=== PATIENT | male | born 2000 | race Caucasian/White ===

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

== ENCOUNTER 2019-03-24 19:25 | Emergency (ER) | payer OTHER ==
[~2019-03-24] VITALS: Ht 172.7 cm; Wt 74.8 kg
[2019-03-24 19:35] VITALS: BP 123/70
--- NOTE | 2019-03-24 19:38 | NUR ---
TO LOBBY A/W BED AMBULATORY
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
[2019-03-24] MEDS ORDERED: BACITRACIN OINT 500 UNITS/GM PKT TP ONE (20:25)
--- NOTE | 2019-03-24 20:35 | NUR ---
BACITRACIN PLACED ON PTS FA BURN AT THIS TIME
--- NOTE | 2019-03-24 20:54 | NUR ---
Patient discharged with v/s stable. Written and verbal after care instructions given and explained. Patient alert, oriented and verbalized understanding of instructions. Ambulatory with steady gait. All questions addressed prior to discharge. ID band removed. Patient advised to follow up with PMD. Rx of BACITRACIN AND TYLENOL given. Patient educated on indication of medication including possible reaction and side effects. Opportunity to ask questions provided and answered.
[2019-03-24 20:56] VITALS: BP 123/70
== END 2019-03-24 20:54 | disposition home or self-care (01) ==
LOC: MED 19:25
DX: T22.112A Burn of first degree of left forearm, initial encounter (principal); X10.0XXA Contact with hot drinks, initial encounter; Y93.89 Activity, other specified; Y92.090 Kitchen in other non-institutional residence as the place of occurrence of the external cause; Y99.0 Civilian activity done for income or pay
CPT/HCPCS: 16000; 99284

== ENCOUNTER 2019-07-18 16:52 | Emergency (ER) | payer SELFPAY ==
[~2019-07-18] VITALS: Ht 170.2 cm; Wt 65.8 kg
[2019-07-18 17:01] VITALS: BP 131/79
--- NOTE | 2019-07-18 17:06 | NUR ---
Patient ambulated to bed 2
--- NOTE | 2019-07-18 17:10 | NUR ---
19 Y/O MALE C/O ABD PAIN WITH NAUSEA AND DIARRHEA X 2 DAYS. DENIES VOMITING. X 2 EPISODES OF DIARRHEA TODAY. 2/10 ABD CRAMPING. STATES SYMPTOMS STARTED AFTER EATING AT [employer]. DENIES FEVER/CHILLS. ABD SOFT, FLAT, NONTENDER TO PALP. BOWEL SOUNDS ACTIVE X 4 QUAD. STATES HE TOOK LUCAS SELTZER EARLIER WITH NO RELIEF. SITTING UPRIGHT, HOB ELEVATED. X 1 SIDE RAIL RAISED, BED LOCKED AND IN LOW POSITION. VSS MEDHX: DENIES ALLERGIES: NKA
--- NOTE | 2019-07-18 17:17 | NUR ---
DR GUTIERREZ AT BEDSIDE EXAMINING PT
[2019-07-18 17:31] VITALS: BP 124/81
--- NOTE | 2019-07-18 17:32 | NUR ---
Patient discharged with v/s stable. Written and verbal after care instructions given and explained. Patient alert, oriented and verbalized understanding of instructions. Ambulatory with steady gait. All questions addressed prior to discharge. ID band removed. Patient advised to follow up with PMD. Rx of ZOFRAN AND PROTONIX given. Patient educated on indication of medication including possible reaction and side effects. Opportunity to ask questions provided and answered.
== END 2019-07-18 17:32 | disposition home or self-care (01) ==
LOC: MED 16:52
DX: A08.4 Viral intestinal infection, unspecified (principal)
CPT/HCPCS: 99283

== ENCOUNTER 2020-05-10 13:27 | Emergency (ER) | payer SELFPAY ==
[~2020-05-10] VITALS: Ht 170.2 cm; Wt 68.0 kg
[2020-05-10 13:49] VITALS: BP 158/76
--- NOTE | 2020-05-10 13:49 | NUR ---
PT WAITING OUTSIDE IN COVID TENT FOR MSE.
--- NOTE | 2020-05-10 13:50 | NUR ---
20/M c/o headache and body aches x2 days. Denies being in contact with + covid. Denies N/V/D. Denies fever or chills. Pt states he has been tested for covid in past but not recently.
--- NOTE | 2020-05-10 13:50 | NUR ---
PT SEEN BY HARMONY SOLANO OUTSIDE.
--- NOTE | 2020-05-10 14:36 | NUR ---
NOVEL SWAB COLLECTED AND SENT TO LAB.
[2020-05-10 14:37] VITALS: BP 158/76
--- NOTE | 2020-05-10 14:37 | NUR ---
Patient discharged with v/s stable. Written and verbal after care instructions given and explained. Patient alert, oriented and verbalized understanding of instructions. Ambulatory with steady gait. All questions addressed prior to discharge. ID band removed. Patient advised to follow up with PMD. Rx of Tylenol Extra Strength given. Patient educated on indication of medication including possible reaction and side effects. Opportunity to ask questions provided and answered.
== END 2020-05-10 14:37 | disposition home or self-care (01) ==
LOC: MED 13:27
DX: M79.10 Myalgia, unspecified site (principal); Z20.828 Contact with and (suspected) exposure to other viral communicable diseases; R51.9 Headache, unspecified
CPT/HCPCS: 99283; U0003

== ENCOUNTER 2020-05-31 18:13 | Emergency (ER) | payer MEDICAID, SELFPAY ==
[~2020-05-31] VITALS: Ht 170.2 cm; Wt 72.6 kg
[2020-05-31 18:25] VITALS: BP 119/65
[2020-05-31] MEDS ORDERED: LIDOCAINE VISCOUS 2% 20 ML UDC ONE (19:18)
[2020-05-31] MEDS ORDERED: DICYCLOMINE HCL LIQUID 10 MG/5 ML UDC ONE (19:19)
[2020-05-31] MEDS ORDERED: ALUMINUM HYD/MAG/SIMETHICONE 30 ML UDC ONE (19:19)
[2020-05-31] MEDS: ALUMINUM HYD/MAG/SIMETHICONE 30 ML, DICYCLOMINE HCL LIQUID 20 MG, LIDOCAINE VISCOUS 2% ... PO ONE ×3 (19:23)
[2020-05-31 20:55] VITALS: BP 115/63
== END 2020-05-31 20:55 | disposition home or self-care (01) ==
LOC: MED 18:13
DX: K29.70 Gastritis, unspecified, without bleeding (principal)
CPT/HCPCS: 99283

== ENCOUNTER 2020-06-15 10:52 | Emergency (ER) | payer MEDICAID ==
[~2020-06-15] VITALS: Ht 170.2 cm; Wt 77.1 kg
[2020-06-15 10:58] VITALS: BP 148/78
--- NOTE | 2020-06-15 11:05 | NUR ---
20 YO M BIB SELF FOR C/C OF 8/10 MID LOWER ABDOMINAL PAIN DESCRIBED A "PUSHING" PAIN THAT COMES AND GOES. PT WAS DX WITH GASTRITIS LAST MONTH AND WAS PRESCRIBED RX OF PEPCID, PT STATES RX HELPED INITIALLY BUT PAIN IS RETURNING THE SAME IT DID LAST MONTH. PT DENIES N/V/D, DENIES CHANGES IN APPETITE, DENIES COVID SYMPTOMS. LBM WAS THIS MORNING SOFT AND FORMED. BOWEL SOUNDS NORMOACTIVE THROUGHOUT. BED LOCKED AND IN LOWEST POSITION. SIDE RAILS X1. MED HX: GASTRITIS
--- NOTE | 2020-06-15 12:17 | NUR ---
pt taken to rad via wheelchair
--- NOTE | 2020-06-15 12:29 | NUR ---
PT RETURNED FROM RAD VIA WHEELCHAIR
[2020-06-15 13:38] VITALS: BP 130/81
== END 2020-06-15 13:38 | disposition home or self-care (01) ==
LOC: MED 10:52
DX: R10.30 Lower abdominal pain, unspecified (principal)
CPT/HCPCS: 74022; 99283

== ENCOUNTER 2020-11-21 08:18 | Emergency (ER) | payer MEDICAID ==
[~2020-11-21] VITALS: Ht 170.2 cm; Wt 70.8 kg
[2020-11-21 08:25] VITALS: BP 137/78
--- NOTE | 2020-11-21 08:30 | NUR ---
PT AMBULATED TO BED 9
--- NOTE | 2020-11-21 08:32 | NUR ---
DR ODOM AT BEDSIDE EVALUATING PT
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
--- NOTE | 2020-11-21 08:47 | NUR ---
PT TAKEN TO RAD VIA W/C
--- NOTE | 2020-11-21 09:03 | NUR ---
PT BACK FROM RAD.
[2020-11-21] MEDS ORDERED: NAPR-1704 PO (09:13)
[2020-11-21 09:25] VITALS: BP 137/78
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
== END 2020-11-21 09:31 | disposition home or self-care (01) ==
LOC: MED 08:18
DX: S16.1XXA Strain of muscle, fascia and tendon at neck level, initial encounter (principal); S29.012A Strain of muscle and tendon of back wall of thorax, initial encounter; Z79.899 Other long term (current) drug therapy; V43.52XA Car driver injured in collision with other type car in traffic accident, initial encounter; Y93.89 Activity, other specified; Y92.89 Other specified places as the place of occurrence of the external cause; Y99.8 Other external cause status
CPT/HCPCS: 72040; 99283

== ENCOUNTER 2021-01-02 08:36 | Emergency (ER) | payer MEDICAID, OTHER ==
[~2021-01-02] VITALS: Ht 170.2 cm; Wt 79.4 kg
[~2021-01-02 08:36] MED LIST: NAPR-1704 PO
[2021-01-02 08:41] VITALS: BP 122/74
--- NOTE | 2021-01-02 08:45 | NUR ---
PATIENT AMBULATED TO CHAIR A.
--- NOTE | 2021-01-02 09:03 | NUR ---
20 Y/O MALE C/O TOOTH PAIN X2 WEEK. UPPER L MOLAR. PT STATES PAIN INCREASED LAST NIGHT AND WOKE HIM UP AT 0200. PT HAS NOT SEEN DENTIST IN YEARS. PT TOOK IBUPROFEN, TYENOL AND ORAJEL WITHOUT RELIEF. DENIES N/V/FEVER/CHILLS/SOB. PT A/O X4 WITH EVEN AND UNLABORED RESPIRATIONS PMH:DENIES NKDA
[2021-01-02] MEDS ORDERED: KETOROLAC 60 MG/2 ML VIAL IM ONE (09:05)
--- NOTE | 2021-01-02 09:50 | NUR ---
Dr. Lerma is evaluating patient at bedside.
[2021-01-02] MEDS ORDERED: IBUP-2213 PO (10:00)
[2021-01-02] MEDS ORDERED: ACET-8386 PO (10:00)
--- NOTE | 2021-01-02 10:04 | NUR ---
Patient discharged with v/s stable. Written and verbal after care instructions given and explained for Dental Abscess. Work note provided. Patient alert, oriented and verbalized understanding of instructions. Ambulatory with steady gait. All questions addressed prior to discharge. ID band removed. Patient advised to follow up with PMD. Rx of Hydrocodone/Acetaminophen, Ibuprofen given. Patient educated on indication of medication including possible reaction and side effects. Opportunity to ask questions provided and answered.
== END 2021-01-02 10:04 | disposition home or self-care (01) ==
LOC: MED 08:36
DX: K08.89 Other specified disorders of teeth and supporting structures (principal)
CPT/HCPCS: 96372; 99283; J1885

== ENCOUNTER 2021-01-24 17:56 | Emergency (ER) | payer SELFPAY ==
[~2021-01-24] VITALS: Ht 170.2 cm; Wt 72.8 kg
[~2021-01-24 17:56] MED LIST changes: +ACET-8386 PO; +IBUP-2213 PO
[2021-01-24 18:11] VITALS: BP 139/70
--- NOTE | 2021-01-24 18:16 | NUR ---
PT TO WAIT IN LOBBY
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
--- NOTE | 2021-01-24 20:12 | NUR ---
Patient discharged with v/s stable. Written and verbal after care instructions given and explained. Patient verbalized understanding. Ambulatory with steady gait. All questions addressed prior to discharge. Advised to follow up with PMD.
== END 2021-01-24 20:12 | disposition home or self-care (01) ==
LOC: MED 17:56
DX: S63.92XA Sprain of unspecified part of left wrist and hand, initial encounter (principal); X50.0XXA Overexertion from strenuous movement or load, initial encounter; Y93.89 Activity, other specified; Y92.89 Other specified places as the place of occurrence of the external cause; Y99.8 Other external cause status
CPT/HCPCS: 73090; 73110; 99284

== ENCOUNTER 2021-08-10 09:10 | Emergency (ER) | payer SELFPAY ==
[~2021-08-10] VITALS: Ht 170.2 cm; Wt 68.0 kg
[2021-08-10 09:18] VITALS: BP 120/66
--- NOTE | 2021-08-10 09:35 | NUR ---
21 Y/O MALE BIB SELF C/O L CALF PAIN RATED 8/10. THE PAIN IS A " PRESSURE" TYPE OF PAIN WHICH OCCURED X2 DAYS AGO AFTER LIFTING HEAVY BOXES AT WORK. PT DENIES SIMILAR INJURIES IN THE PAST. PT STATES THE PAIN IS AGGREVATED BY FLEXION OF THE FOOT. PT TOOK TYLENOL FOR PAIN YESTERDAY, DENIES TAKING MEDICATION PRIOR TO ARRIVAL TODAY. PT ALERT AND ORIENTED X4. BED IN LOWEST POSITION. SIDE RAILS X1. PMH:DENIES MEDS:DENIES NKA
--- NOTE | 2021-08-10 09:40 | NUR ---
AT PT BEDSIDE
[2021-08-10] MEDS ORDERED: KETOROLAC 30 MG/ML VIAL IM ONE (10:10)
[2021-08-10] MEDS ORDERED: IBUP-2213 PO (10:40)
[2021-08-10 11:01] VITALS: BP 120/66
== END 2021-08-10 11:02 | disposition home or self-care (01) ==
LOC: MED 09:10
DX: S86.912A Strain of unspecified muscle(s) and tendon(s) at lower leg level, left leg, initial encounter (principal); X50.0XXA Overexertion from strenuous movement or load, initial encounter; Y92.89 Other specified places as the place of occurrence of the external cause; Y93.89 Activity, other specified; Y99.0 Civilian activity done for income or pay
CPT/HCPCS: 96372; 99283; J1885

== ENCOUNTER 2021-08-21 18:33 | Emergency (ER) | payer SELFPAY ==
[~2021-08-21] VITALS: Ht 170.2 cm; Wt 77.1 kg
[2021-08-21 18:44] VITALS: BP 121/70
[2021-08-21] MEDS ORDERED: IBUPROFEN 800 MG TAB PO ONE (21:35)
[2021-08-21] MEDS ORDERED: AMOXIL/CLAVULANATE 875/125 MG 1 TAB PO ONE (21:35)
[2021-08-21] MEDS ORDERED: AMOX1TAB8 PO (21:36)
--- NOTE | 2021-08-21 21:52 | NUR ---
d/c with VSS. d/c education given. opportunity to ask questions given and answered. rx of amoxicillin given.
== END 2021-08-21 21:52 | disposition home or self-care (01) ==
LOC: MED 18:33
DX: S81.831A Puncture wound without foreign body, right lower leg, initial encounter (principal); W54.0XXA Bitten by dog, initial encounter; Y93.89 Activity, other specified; Y92.89 Other specified places as the place of occurrence of the external cause; Y99.8 Other external cause status
CPT/HCPCS: 99283

== ENCOUNTER 2021-09-13 09:19 | Emergency (ER) | payer SELFPAY ==
[~2021-09-13] VITALS: Ht 170.2 cm; Wt 68.2 kg
[~2021-09-13 09:19] MED LIST changes: +AMOX1TAB8 PO
--- NOTE | 2021-09-13 09:31 | NUR ---
Patient ambulated with steady gait to bed 4.
[2021-09-13 09:32] VITALS: BP 100/66
--- NOTE | 2021-09-13 09:52 | NUR ---
21 y/o male, c/o lateral right upper calf radiates to right knee form dog bite on 08/21/21. pt states he had MRI done at [facility], negative result. dog bite from neighbors [facility] report was done day of accident. no swelling or edema at this time. skin is pink/warm/dry. a&o x4 with even and steady gait. lungs clear bl, heart rate even and regular. pt denies any fever, cp, sob, or cough at this time. pt states pain is 8/10 at this time. vss. patient positioned for comfort. hob elevated. bed down. ermd made aware of pt. pmh: denies nka med: cbd, cooling gel, ibuprofen, tylenol (no relief)
[2021-09-13] MEDS ORDERED: NAPR-54 PO (10:23)
[2021-09-13 10:48] VITALS: BP 100/66
--- NOTE | 2021-09-13 10:49 | NUR ---
Patient discharged with v/s stable. Written and verbal after care instructions given and explained. Patient alert, oriented and verbalized understanding of instructions. Ambulatory with steady gait to car. All questions addressed prior to discharge. ID band removed. Patient advised to follow up with PMD. Rx of naproxen (sent) given. Patient educated on indication of medication including possible reaction and side effects. Opportunity to ask questions provided and answered. copy of xray given, work note given
== END 2021-09-13 10:49 | disposition home or self-care (01) ==
LOC: MED 09:19
DX: M25.561 Pain in right knee (principal); Z79.1 Long term (current) use of non-steroidal anti-inflammatories (NSAID); Z79.2 Long term (current) use of antibiotics; Z79.891 Long term (current) use of opiate analgesic
CPT/HCPCS: 73560; 99283

== ENCOUNTER 2022-01-29 16:51 | Emergency (ER) | payer MEDICAID ==
[~2022-01-29] VITALS: Ht 170.2 cm; Wt 70.3 kg
[~2022-01-29 16:51] MED LIST changes: +NAPR-54 PO
[2022-01-29 17:05] VITALS: BP 135/75
--- NOTE | 2022-01-29 17:40 | NUR ---
1/M WALKED IN C/O SHARP ABD PAIN RADIATING TO LEFT SIDE OF RIB. DENIES TRAUMA OR INJURY. STATES 1 EPISODE OF EMESIS TODAY. DENIES DIARRHEA OR BLOOD IN EMESIS. AFEBRILE. NKA PMH: DENIES
[2022-01-29] MEDS ORDERED: OMEP40EC24 PO (19:18)
[2022-01-29] MEDS ORDERED: ACET-8386 PO (19:18)
[2022-01-29] MEDS ORDERED: IBUP-2213 PO (19:18)
[2022-01-29 19:51] VITALS: BP 111/89
--- NOTE | 2022-01-29 19:51 | NUR ---
d/c with VSS. d/c education given. opportunity to ask questions given and answered. rx of prilosec, norco, and motrin given.
== END 2022-01-29 19:51 | disposition home or self-care (01) ==
LOC: MED 16:51
DX: R10.13 Epigastric pain (principal)
CPT/HCPCS: 99283